=== PATIENT | female | born 1990 | race Two or more races ===

== ENCOUNTER 2018-02-17 21:04 | Emergency (ER) | payer SELFPAY ==
[~2018-02-17] VITALS: Ht 170.2 cm; Wt 80.7 kg
--- NOTE | 2018-02-17 21:10 | NUR ---
ADMITTED PT TO ER RM 4A AMBULATORY C/O PAIN ON L NECK & L SHOULDER. DR MIXON CAME & EVALUATED PT.
[2018-02-17] MEDS ORDERED: OXYCODONE/APAP 5-325 MG TABLET PO ONE (21:30)
[2018-02-17] MEDS ORDERED: ONDANSETRON ODT 4 MG TAB.RAPDIS SL ONE ×2 (21:30→22:30)
[2018-02-17] MEDS ORDERED: OXYCODONE/APAP 5-325 MG TABLET ONE (21:35)
[2018-02-17] MEDS ORDERED: ONDANSETRON HCL 4 MG TABLET ONE (21:37)
--- NOTE | 2018-02-17 21:39 | NUR ---
PERCOCET 5-325 2 TABS & ZOFRAN 4MG TAB GIVEN PO ORDERED. XRAY ON L NECK & L SHOULDER DONE.
--- NOTE | 2018-02-17 22:07 | NUR ---
TO XR FOR CT SCAN OF CERVICAL SPINE VIA W/C.
[2018-02-17] MEDS ORDERED: ONDANSETRON ODT 4 MG TAB.RAPDIS ONE (22:27)
--- NOTE | 2018-02-17 22:30 | NUR ---
L SHOULDER IMMOBILIZER APPLIED ORDERED.
--- NOTE | 2018-02-17 23:06 | NUR ---
DISCHARGE INSTRUCTIONS GIVEN & WAS UNDERSTOOD.
[2018-02-17 23:10] VITALS: BP 118/72
== END 2018-02-17 23:12 | disposition home or self-care (01) ==
LOC: ER 21:07
DX: S40.012A Contusion of left shoulder, initial encounter (principal); J45.909 Unspecified asthma, uncomplicated; Z88.5 Allergy status to narcotic agent; W22.8XXA Striking against or struck by other objects, initial encounter; Y93.89 Activity, other specified; Y92.89 Other specified places as the place of occurrence of the external cause; Y99.8 Other external cause status
CPT/HCPCS: 72125; 73010; 73030; A4663; Q0162

== ENCOUNTER 2018-02-19 12:12 | Emergency (ER) | payer SELFPAY ==
[~2018-02-19] VITALS: Ht 170.2 cm; Wt 80.7 kg
--- NOTE | 2018-02-19 12:29 | NUR ---
DR IRBY AT BEDSIDE FOR EVAL.
[2018-02-19] MEDS ORDERED: KETOROLAC TROMETHAMINE 30 MG INJ ONE (12:50)
[2018-02-19] MEDS ORDERED: LORAZEPAM 2 MG/1 ML VIAL ONE (12:51)
[2018-02-19] MEDS: DIAZEPAM 10 MG/2 ML DISP.SYRIN IV ONE (12:51)
[2018-02-19] MEDS: LORAZEPAM 2 MG/1 ML VIAL IV ONE (12:51)
[2018-02-19] MEDS: KETOROLAC TROMETHAMINE 30 MG INJ IVP ONE (12:51)
--- NOTE | 2018-02-19 14:50 | NUR ---
Patient discharged to home in stable conditon. Written and verbal after care instructions given. Patient verbalizes understanding of instructions.PT WALKS IN STEADY GAIT.PT WITH FATHER.
[2018-02-19 14:51] VITALS: BP 101/81
== END 2018-02-19 14:53 | disposition home or self-care (01) ==
LOC: ER 12:13
DX: S49.92XA Unspecified injury of left shoulder and upper arm, initial encounter (principal); M54.12 Radiculopathy, cervical region; J45.909 Unspecified asthma, uncomplicated; Z88.5 Allergy status to narcotic agent; W26.8XXA Contact with other sharp object(s), not elsewhere classified, initial encounter; Y93.89 Activity, other specified; Y92.89 Other specified places as the place of occurrence of the external cause; Y99.8 Other external cause status
CPT/HCPCS: 73200; A4663; J1885; J2060

== ENCOUNTER 2019-11-25 10:17 | Emergency (ER) | payer BC ==
[~2019-11-25] VITALS: Ht 170.2 cm; Wt 83.9 kg
[2019-11-25] MEDS ORDERED: ALBUTEROL SULFATE 2.5 MG/3 ML NEBU ONE (10:30)
[2019-11-25] MEDS ORDERED: IPRATROPIUM BROMIDE 0.5 MG/2.5 ML NEBU ONE (10:30)
[2019-11-25] MEDS ORDERED: ALBUTEROL SULFATE 2.5 MG/3 ML NEBU NEB ONE (10:30)
[2019-11-25] MEDS ORDERED: IPRATROPIUM BROMIDE 0.5 MG/2.5 ML NEBU NEB ONE (10:30)
[2019-11-25] MEDS ORDERED: TERBUTALINE SULFATE 1 MG/1 ML VIAL SQ ONE (10:30)
[2019-11-25] MEDS ORDERED: MAGNESIUM SULFATE 2 GM in IV DEXTROSE 5% 100 ML IV ONE (10:30)
[2019-11-25] MEDS ORDERED: methylPREDNISolone SOD SUCC 125 MG/2 ML VIAL IV ONE (10:30)
--- NOTE | 2019-11-25 10:35 | NUR ---
PT AMBULATOR W/ STABLE GAIT C/O ASTHMA EXACERBATION Patient is AOx4, speaking in complete sentences BUT INTERRUPTED BY TACHYPNEA, speech is clear. Patient is able to follow /comprehend directions. Gait is stable. No cardiovascular distress noted. Rate and rhythm are regular. No CP. No respiratory distress noted. Respirations even & unlabored with symmetrical chest rise. No adventitious sounds noted. Patient denies Fever/Chills. No recent travel. No pertinent medical history/CODEINE. MONITORED ACCORDINGLY
[2019-11-25] MEDS ORDERED: TERBUTALINE SULFATE 1 MG/1 ML VIAL ONE (10:46)
[2019-11-25] MEDS ORDERED: methylPREDNISolone SOD SUCC 125 MG/2 ML VIAL ONE (10:46)
[2019-11-25] MEDS ORDERED: MAGNESIUM SULFATE/D5W 200 ML ONE (10:54)
--- NOTE | 2019-11-25 11:09 | NUR ---
PT ABLE TO TOLERATE BREATHING TREATMENT PT ABLE TO TOLERATE IV MEDS ORDERED
[2019-11-25] MEDS ORDERED: HYDROCODONE/APAP 10-325 MG TABLET PO ONE (11:15)
[2019-11-25] MEDS ORDERED: HYDROCODONE/APAP 10-325 MG TABLET ONE (11:15)
--- NOTE | 2019-11-25 12:51 | NUR ---
PT WILL ACKNOWLEDGES SHE WILL NOT DRIVE WILL BE PICKED UP BY FAMILY
--- NOTE | 2019-11-25 12:52 | NUR ---
Patient discharged to home in stable condition. Written and verbal after care instructions given. Patient verbalizes understanding of instructions. Stressed follow up or return to ER for worsening s/s. ambulatory w/ stable gait all belongings w/ pt IV d/c, dressed.
[2019-11-25 13:02] VITALS: BP 125/69
== END 2019-11-25 13:04 | disposition home or self-care (01) ==
LOC: ER 10:17
DX: J45.901 Unspecified asthma with (acute) exacerbation (principal); R06.03 Acute respiratory distress; S46.212D Strain of muscle, fascia and tendon of other parts of biceps, left arm, subsequent encounter; X58.XXXD Exposure to other specified factors, subsequent encounter
CPT/HCPCS: 71045; 94644; 96365; 96366; 96372; 96375; 99291; J2930; J3105; J3475; A4663; J3590

== ENCOUNTER 2021-08-01 02:02 | Emergency (ER) | payer BC ==
[~2021-08-01] VITALS: Ht 170.2 cm; Wt 84.4 kg
--- NOTE | 2021-08-01 02:18 | NUR ---
Dr. Sheriff at bedside for MSE.
[2021-08-01] MEDS ORDERED: IPRATROPIUM BROMIDE 0.5 MG/2.5 ML NEBU NEB ONE (02:30)
[2021-08-01] MEDS ORDERED: ALBUTEROL SULFATE 2.5 MG/ 0.5 ML NEBU NEB ONE (02:30)
--- NOTE | 2021-08-01 02:33 | NUR ---
RT at bedside.
[2021-08-01] MEDS ORDERED: ALBUTEROL SULFATE 2.5 MG/3 ML NEBU ONE (02:38)
[2021-08-01] MEDS ORDERED: IPRATROPIUM BROMIDE 0.5 MG/2.5 ML NEBU ONE (02:39)
[2021-08-01] MEDS ORDERED: ALBU6.7H9 INH (03:17)
--- NOTE | 2021-08-01 03:21 | NUR ---
Patient discharged to home in stable condition. Written and verbal after care instructions given. Patient verbalizes understanding of instructions. Stressed follow up or return to ER for worsening s/s. Patient out of ER with steady gait, no acute signs of distress, VSS, all belongings taken.
[2021-08-01 03:22] VITALS: BP 139/73
== END 2021-08-01 03:23 | disposition home or self-care (01) ==
LOC: ER 02:09
DX: J45.901 Unspecified asthma with (acute) exacerbation (principal)
CPT/HCPCS: A4663; J3590